=== PATIENT | female | born 1950 | race Caucasian/White ===

== ENCOUNTER → 2017-04-03 | Outpatient (CLI) | payer OTHER, MEDICARE ==
[~2017-04-03] VITALS: Ht 160 cm; Wt 58.6 kg
[~2017-04-03] MED LIST: VAGIFEM10 MCG VG
[2017-04-03 08:09] VITALS: BP 98/53
== END | disposition home or self-care (01) ==
LOC: IVINF 08:02
DX: M85.80 Other specified disorders of bone density and structure, unspecified site (principal)
CPT/HCPCS: 96365; J3489